=== PATIENT | male | born 1935 | race African-American/Black ===

== ENCOUNTER 2019-10-05 12:25 | Inpatient (IN) ==
[2019-10-05] MEDS ORDERED: DIPH/TET/ACEL PERT BOOSTER VACCINE 0.5 ML VIAL IM ONE (13:23)
[2019-10-05 14:11] LABS: Basophils % 0.1 % (0.0-0.8); Hematocrit 42.5 VOL% (42.0-52.0); Hemoglobin 14.3 GM/DL (14.0-18.0); Immature Granulocytes % 0.4 %; Immature Granulocytes Absolute 0.04 #; Lymphocytes # 1.1 10*3/uL (1.4-4.0); Lymphocytes % 10.2 % (21.2-54.2); Mean Corpuscular HGB Conc 33.6 GM/DL (32-36); Mean Corpuscular Volume 91.4 FL (87-102); Mean Platelet Volume 10.5 FL (9.6-12.0); Monocytes % 9.1 % (1.7-12.7); Neutrophils % 80.2 % (38.7-73.9); Platelet Count 199 T/CUMM (130-400); Red Blood Count 4.65 MC/CUMM (3.8-5.5)
[2019-10-05 14:42] LABS: Albumin 3.4 G/DL (3.4-5.0); Bilirubin,Total 2.3 MG/DL (0.2-1.0); Calcium 9.2 MG/DL (8.5-10.1); Osmolality,Calculated 284.8 MOS/KG (273-304); Partial Thromboplastin Time 31.5 SECS (23.9-33.8); Total Protein 7.8 G/DL (6.4-8.3)
[2019-10-05 15:05] LABS: Apearance,Urine Slightly Hazy (Clear); Bacteria,Urine Many /HPF (Few); Bilirubin,Urine Negative (Negative); Blood, Urine Large mg/dL (Negative); Glucose,Urine (UA) Negative (Negative); Ketones,Urine 5 mg/dL (Negative); Mucus,Urine Occasional /LPF (Occasional); Nitrite,Urine Negative (Negative); Protein,Urine 30 MG/DL; RBC,Urine 66 /HPF (0-4); Urine Color Yellow (Yellow); Urine Specific Gravity 1.014 (1.001-1.035); WBC,Urine 65 /HPF (0-6)
[2019-10-05 15:11] LABS: Barbiturates Screen,Urine Negative (Negative); Benzodiazepines Screen,Urine Negative (Negative); Cannabinoid Screen,Urine Negative (Negative); Opiate Screen,Urine Negative (Negative); Phencyclidine Screen,Urine Negative (Negative)
[2019-10-05] MEDS ORDERED: ASPIRIN CHEW 81 MG TABLET PO STA (15:27)
[2019-10-05] MEDS ORDERED: HEPARIN 1,000 UNIT/1 ML VIAL IV STA (15:28)
[2019-10-05] MEDS ORDERED: cefTRIAXone 1,000 MG in SODIUM CHLORIDE 0.9% 100 ML IV STA (15:30)
[2019-10-05] MEDS ORDERED: ACETAMINOPHEN 325 MG TABLET PO PRN (16:10)
[2019-10-05] MEDS ORDERED: ONDANSETRON 4 MG/2 ML VIAL IV PRN (16:10)
[2019-10-05] MEDS ORDERED: DEXTROSE 50% 25 GM/50 ML VIAL IV PRN (16:10)
[2019-10-05] MEDS ORDERED: GLUCAGON 1 MG VIAL IM PRN (16:10)
[2019-10-05] MEDS ORDERED: hydrALAZINE 20 MG/1 ML VIAL IV PRN (16:10)
[2019-10-05] MEDS ORDERED: LACTULOSE 20 GM/30 ML UDCUP PO PRN (16:10)
[2019-10-05] MEDS ORDERED: DOCUSATE SODIUM 100 MG CAPSULE PO PRN (16:10)
[2019-10-05] MEDS: SODIUM CHLORIDE 0.9% 1,000 ML IV SCH (17:45)
[2019-10-05] MEDS ORDERED: SIMVASTATIN 10 MG TABLET PO SCH (21:00)
[2019-10-05] MEDS: HEPARIN 5,000 UNIT/1 ML VIAL SUBCUT SCH (21:12)
[2019-10-06] MEDS: SODIUM CHLORIDE 0.9% 1,000 ML IV SCH ×3 (01:17→21:38)
[2019-10-06 06:23] LABS: Basophils % 0.2 % (0.0-0.8); Eosinophils % 0.1 % (0.00-10.9); Hematocrit 37.4 VOL% (42.0-52.0); Hemoglobin 12.4 GM/DL (14.0-18.0); Immature Granulocytes % 0.7 %; Immature Granulocytes Absolute 0.09 #; Lymphocytes # 1.8 10*3/uL (1.4-4.0); Mean Corpuscular HGB Conc 33.2 GM/DL (32-36); Mean Platelet Volume 10.8 FL (9.6-12.0); Monocytes % 10.2 % (1.7-12.7); Neutrophils % 74.8 % (38.7-73.9); Platelet Count 179 T/CUMM (130-400); Red Blood Count 4.11 MC/CUMM (3.8-5.5); Red Cell Distribution Width 14.4 % (9.3-17.3); White Blood Count 12.6 T/CUMM (4-12)
[2019-10-06] MEDS: HEPARIN 5,000 UNIT/1 ML VIAL SUBCUT SCH ×3 (06:46→21:46)
[2019-10-06 06:49] LABS: Albumin 2.5 G/DL (3.4-5.0); Bilirubin,Total 2.4 MG/DL (0.2-1.0); Calcium 8.3 MG/DL (8.5-10.1); Osmolality,Calculated 286.5 MOS/KG (273-304); Risk Ratio 2.27; Thyroid Stimulating Hormone 0.934 uIU/ml (0.358-3.74); VLDL CHOLESTEROL 24.2 MG/DL
[2019-10-06] MEDS: PANTOPRAZOLE 40 MG TABLET PO SCH (08:41)
[2019-10-06] MEDS: cefTRIAXone 1,000 MG in SYRINGE 1 EACH IV SCH (08:41)
[2019-10-06 08:58] LABS: CKMB % 0.3 %
[2019-10-06 09:01] LABS: Troponin I 1.55 NG/ML (0.00-0.045)
[2019-10-06 10:06] LABS: CKMB % 0.3 %
[2019-10-06 10:07] LABS: Troponin I 1.4 NG/ML (0.00-0.045)
[2019-10-06 12:03] LABS: CKMB % 0.3 %
[2019-10-06 12:04] LABS: Troponin I 1.29 NG/ML (0.00-0.045)
[2019-10-06] MEDS: POTASSIUM CHLORIDE 20 MEQ TABLET PO PRN ×4 (16:12→21:46)
[2019-10-07 05:21] LABS: Basophils % 0.2 % (0.0-0.8); Eosinophils # 0.1 10*3/uL (0.0-0.87); Eosinophils % 1.4 % (0.00-10.9); Hemoglobin 12.1 GM/DL (14.0-18.0); Immature Granulocytes % 0.5 %; Immature Granulocytes Absolute 0.03 #; Lymphocytes # 1.3 10*3/uL (1.4-4.0); Lymphocytes % 20.9 % (21.2-54.2); Mean Corpuscular HGB Conc 32.7 GM/DL (32-36); Mean Corpuscular Volume 93.7 FL (87-102); Mean Platelet Volume 10.5 FL (9.6-12.0); Monocytes % 11.6 % (1.7-12.7); Neutrophils % 65.4 % (38.7-73.9); Platelet Count 165 T/CUMM (130-400); Red Blood Count 3.95 MC/CUMM (3.8-5.5); Red Cell Distribution Width 14.5 % (9.3-17.3); White Blood Count 6.4 T/CUMM (4-12)
[2019-10-07] MEDS: HEPARIN 5,000 UNIT/1 ML VIAL SUBCUT SCH ×3 (05:41→21:01)
[2019-10-07 06:03] LABS: Albumin 2.4 G/DL (3.4-5.0); Calcium 8.2 MG/DL (8.5-10.1); Osmolality,Calculated 286.3 MOS/KG (273-304); Total Protein 6.6 G/DL (6.4-8.3)
[2019-10-07] MEDS: SODIUM CHLORIDE 0.9% 1,000 ML IV SCH ×3 (06:14→16:14)
[2019-10-07] MEDS: PANTOPRAZOLE 40 MG TABLET PO SCH (08:28)
[2019-10-07] MEDS: POTASSIUM CHLORIDE 20 MEQ TABLET PO PRN ×3 (08:28→14:50)
[2019-10-07] MEDS: cefTRIAXone 1,000 MG in SYRINGE 1 EACH IV SCH (08:28)
[2019-10-07 08:34] LABS: Troponin I 0.805 NG/ML (0.00-0.045)
[2019-10-07 08:40] LABS: CKMB % 0.3 %
[2019-10-08] MEDS: SODIUM CHLORIDE 0.9% 1,000 ML IV SCH ×3 (02:14→21:10)
[2019-10-08 05:33] LABS: Basophils % 0.3 % (0.0-0.8); Eosinophils # 0.1 10*3/uL (0.0-0.87); Eosinophils % 1.5 % (0.00-10.9); Hemoglobin 11.3 GM/DL (14.0-18.0); Immature Granulocytes % 1.4 %; Lymphocytes # 1.8 10*3/uL (1.4-4.0); Lymphocytes % 24.7 % (21.2-54.2); Mean Corpuscular HGB Conc 31.4 GM/DL (32-36); Monocytes % 12.2 % (1.7-12.7); Neutrophils % 59.9 % (38.7-73.9); Platelet Count 173 T/CUMM (130-400); Red Blood Count 3.79 MC/CUMM (3.8-5.5); Red Cell Distribution Width 14.6 % (9.3-17.3); White Blood Count 7.2 T/CUMM (4-12)
[2019-10-08 05:57] LABS: Calcium 8.1 MG/DL (8.5-10.1); Osmolality,Calculated 286.1 MOS/KG (273-304)
[2019-10-08] MEDS: HEPARIN 5,000 UNIT/1 ML VIAL SUBCUT SCH ×3 (05:57→21:09)
[2019-10-08 06:14] LABS: CKMB % 0.3 %
[2019-10-08 06:15] LABS: Troponin I 0.521 NG/ML (0.00-0.045)
[2019-10-08] MEDS ORDERED: FUROSEMIDE 20 MG/2 ML VIAL IV ONE (08:12)
[2019-10-08] MEDS: MULTIVITAMIN (BEROCCA) TABLET PO SCH (09:10)
[2019-10-08] MEDS: PANTOPRAZOLE 40 MG TABLET PO SCH (09:11)
[2019-10-08] MEDS: CEFUROXIME 500 MG TABLET PO SCH ×2 (09:11→21:09)
[2019-10-08] MEDS: LACTOBACILLUS RHAMNOSUS GG CAPSULE PO SCH ×2 (09:11→21:09)
[2019-10-08] MEDS: ASCORBIC ACID 500 MG TABLET PO SCH ×2 (09:11→21:09)
[2019-10-08] MEDS: POTASSIUM CHLORIDE 20 MEQ TABLET PO PRN (09:11)
[2019-10-09 05:03] LABS: Troponin I 0.223 NG/ML (0.00-0.045)
[2019-10-09] MEDS: HEPARIN 5,000 UNIT/1 ML VIAL SUBCUT SCH ×2 (06:17→14:51)
[2019-10-09] MEDS ORDERED: MAGNESIUM HYDROXIDE SUSP 30 ML UDCUP PO ONE (07:39)
[2019-10-09] MEDS: CEFUROXIME 500 MG TABLET PO SCH (08:10)
[2019-10-09] MEDS: ASCORBIC ACID 500 MG TABLET PO SCH (08:10)
[2019-10-09] MEDS: MULTIVITAMIN (BEROCCA) TABLET PO SCH (08:10)
[2019-10-09] MEDS: PANTOPRAZOLE 40 MG TABLET PO SCH (08:11)
[2019-10-09] MEDS: LACTOBACILLUS RHAMNOSUS GG CAPSULE PO SCH (08:11)
[2019-10-09 11:30] VITALS: BP 118/85
[2019-10-09] MEDS: SODIUM CHLORIDE 0.9% 1,000 ML IV SCH (14:01)
== END 2019-10-09 14:50 | disposition swing bed (61) | DRG 913 ==
LOC: N.EDINP 12:25 → N.ED 12:25 → N.TELEN 16:39 → SUATTDRO 10-06 15:01
PROVIDERS: ADMIT Internal Medicine; ATTEND Internal Medicine

== ENCOUNTER 2022-03-08 11:57 | Inpatient (IN) ==
[2022-03-08 14:23] LABS: Basophils % 0.2 % (0.0-0.8); Eosinophils # 0.1 10*3/uL (0.0-0.87); Eosinophils % 1.2 % (0.00-10.9); Hemoglobin 11.2 GM/DL (14.0-18.0); Immature Granulocytes % 0.3 %; Immature Granulocytes Absolute 0.02 #; Lymphocytes # 1.4 10*3/uL (1.4-4.0); Mean Corpuscular HGB Conc 31.1 GM/DL (32-36); Mean Corpuscular Volume 102.9 FL (87-102); Mean Platelet Volume 10.6 FL (9.6-12.0); Monocytes # 0.5 10*3/uL (0.11-0.8); Neutrophils % 65.3 % (38.7-73.9); Platelet Count 171 T/CUMM (130-400); Red Cell Distribution Width 14.2 % (9.3-17.3); White Blood Count 5.7 T/CUMM (4-12)
[2022-03-08 14:33] LABS: PT Patient Result 10.7 SECS (10.1-12.1); Partial Thromboplastin Time 25.5 SECS (23.7-32.9)
[2022-03-08 14:41] LABS: Albumin 4.1 G/DL (3.4-5.0); Bilirubin,Total 0.6 MG/DL (0.20-1.00); Calcium 9.6 MG/DL (8.5-10.1); Osmolality,Calculated 297.4 MOS/KG (273-304); Potassium 4.6 MMOL/L (3.5-5.1)
[2022-03-08] MEDS ORDERED: DOCUSATE SODIUM 100 MG CAPSULE PO PRN (15:15)
[2022-03-08] MEDS ORDERED: ONDANSETRON 4 MG/2 ML VIAL IV PRN (15:15)
[2022-03-08 16:03] LABS: Bilirubin,Urine Negative (Negative); Blood, Urine Trace mg/dL (Negative); Glucose,Urine (UA) Negative (Negative); Ketones,Urine Negative (Negative); Nitrite,Urine Negative (Negative); Protein,Urine 30 mg/dL (Negative); Urine Appearance Clear (Clear); Urine Color Yellow (Yellow); Urine Urobilinogen 0.2 eU/dL (<2.0); Urine pH 7.5 (4.5-8.0)
[2022-03-08 16:04] LABS: Hyaline Casts,Urine 3 /LPF (0-3); RBC,Urine 7 /HPF (0-4)
[2022-03-08] MEDS: ACETAMINOPHEN 325 MG TABLET PO PRN (17:23)
[2022-03-08] MEDS: SODIUM CHLORIDE 0.9% 1,000 ML IV SCH (18:16)
[2022-03-08] MEDS: HEPARIN 5,000 UNIT/1 ML VIAL SUBCUT SCH (21:47)
[2022-03-09 06:09] LABS: Basophils % 0.2 % (0.0-0.8); Eosinophils # 0.2 10*3/uL (0.0-0.87); Eosinophils % 3.2 % (0.00-10.9); Hematocrit 34.5 VOL% (42.0-52.0); Hemoglobin 10.6 GM/DL (14.0-18.0); Immature Granulocytes % 0.4 %; Immature Granulocytes Absolute 0.02 #; Lymphocytes # 1.5 10*3/uL (1.4-4.0); Lymphocytes % 29.5 % (21.2-54.2); Mean Corpuscular HGB Conc 30.7 GM/DL (32-36); Mean Corpuscular Volume 102.4 FL (87-102); Mean Platelet Volume 11.2 FL (9.6-12.0); Monocytes # 0.3 10*3/uL (0.11-0.8); Monocytes % 6.2 % (1.7-12.7); Neutrophils % 60.5 % (38.7-73.9); Platelet Count 145 T/CUMM (130-400); Red Blood Count 3.37 MC/CUMM (3.8-5.5); Red Cell Distribution Width 14.1 % (9.3-17.3)
[2022-03-09 06:15] LABS: Albumin 2.9 G/DL (3.4-5.0); Bilirubin,Total 0.7 MG/DL (0.20-1.00); Calcium 8.8 MG/DL (8.5-10.1); Osmolality,Calculated 293.6 MOS/KG (273-304); Potassium 4.7 MMOL/L (3.5-5.1); Total Protein 6.7 G/DL (6.4-8.2)
[2022-03-09 06:23] LABS: Risk Ratio 2.72; VLDL Cholesterol 25.6 MG/DL
[2022-03-09] MEDS: SODIUM CHLORIDE 0.9% 1,000 ML IV SCH ×3 (07:50→16:04)
[2022-03-09] MEDS: HEPARIN 5,000 UNIT/1 ML VIAL SUBCUT SCH ×2 (08:42→21:02)
[2022-03-09] MEDS: ASPIRIN EC 81 MG TABLET PO SCH (08:42)
[2022-03-09] MEDS: PANTOPRAZOLE 40 MG TABLET PO SCH (08:42)
[2022-03-09] MEDS ORDERED: TUBERCULIN SKIN TEST 0.1 ML SYRINGE INTRADERM ONE (09:30)
[2022-03-09] MEDS: MENTHOL/ZINC OXIDE OINT 71 GM JAR TOP SCH (21:02)
[2022-03-10] MEDS: SODIUM CHLORIDE 0.9% 1,000 ML IV SCH ×3 (01:57→22:04)
[2022-03-10] MEDS: ASPIRIN EC 81 MG TABLET PO SCH (08:42)
[2022-03-10] MEDS: PANTOPRAZOLE 40 MG TABLET PO SCH (08:42)
[2022-03-10] MEDS: ATORVASTATIN 20 MG TABLET PO SCH (08:42)
[2022-03-10] MEDS: MENTHOL/ZINC OXIDE OINT 71 GM JAR TOP SCH ×2 (08:43→20:54)
[2022-03-10] MEDS: HEPARIN 5,000 UNIT/1 ML VIAL SUBCUT SCH ×2 (08:43→20:54)
[2022-03-11 06:01] LABS: Basophils % 0.3 % (0.0-0.8); Eosinophils # 0.2 10*3/uL (0.0-0.87); Eosinophils % 2.5 % (0.00-10.9); Hematocrit 29.4 VOL% (42.0-52.0); Immature Granulocytes % 0.4 %; Immature Granulocytes Absolute 0.03 #; Lymphocytes # 1.8 10*3/uL (1.4-4.0); Lymphocytes % 24.2 % (21.2-54.2); Mean Corpuscular HGB Conc 30.6 GM/DL (32-36); Mean Corpuscular Volume 102.4 FL (87-102); Mean Platelet Volume 11.9 FL (9.6-12.0); Monocytes # 0.7 10*3/uL (0.11-0.8); Monocytes % 9.8 % (1.7-12.7); Neutrophils % 62.8 % (38.7-73.9); Platelet Count 132 T/CUMM (130-400); Red Blood Count 2.87 MC/CUMM (3.8-5.5); Red Cell Distribution Width 14.5 % (9.3-17.3); White Blood Count 7.3 T/CUMM (4-12)
[2022-03-11 06:04] LABS: Calcium 7.7 MG/DL (8.5-10.1); Osmolality,Calculated 293.6 MOS/KG (273-304); Potassium 3.7 MMOL/L (3.5-5.1)
[2022-03-11 07:15] LABS: Hypochromia Slight; Platelet Estimate Normal
[2022-03-11] MEDS: ASPIRIN EC 81 MG TABLET PO SCH (08:38)
[2022-03-11] MEDS: PANTOPRAZOLE 40 MG TABLET PO SCH (08:38)
[2022-03-11] MEDS: ATORVASTATIN 20 MG TABLET PO SCH (08:38)
[2022-03-11] MEDS: MENTHOL/ZINC OXIDE OINT 71 GM JAR TOP SCH ×2 (08:38→22:17)
[2022-03-11] MEDS: HEPARIN 5,000 UNIT/1 ML VIAL SUBCUT SCH ×2 (08:39→22:18)
[2022-03-11] MEDS: SODIUM CHLORIDE 0.9% 1,000 ML IV SCH ×2 (12:57→22:30)
[2022-03-12 06:10] LABS: Potassium 3.9 MMOL/L (3.5-5.1)
[2022-03-12] MEDS: PANTOPRAZOLE 40 MG TABLET PO SCH (08:44)
[2022-03-12] MEDS: MENTHOL/ZINC OXIDE OINT 71 GM JAR TOP SCH ×2 (08:44→23:06)
[2022-03-12] MEDS: ASPIRIN EC 81 MG TABLET PO SCH (08:44)
[2022-03-12] MEDS: ATORVASTATIN 20 MG TABLET PO SCH (08:44)
[2022-03-12] MEDS: HEPARIN 5,000 UNIT/1 ML VIAL SUBCUT SCH ×2 (08:45→23:06)
[2022-03-12] MEDS: SODIUM CHLORIDE 0.9% 1,000 ML IV SCH ×2 (10:00→15:30)
[2022-03-13] MEDS: SODIUM CHLORIDE 0.9% 1,000 ML IV SCH ×3 (00:50→22:50)
[2022-03-13] MEDS: ATORVASTATIN 20 MG TABLET PO SCH (08:46)
[2022-03-13] MEDS: ASPIRIN EC 81 MG TABLET PO SCH (08:46)
[2022-03-13] MEDS: HEPARIN 5,000 UNIT/1 ML VIAL SUBCUT SCH ×2 (08:47→21:24)
[2022-03-13] MEDS: MENTHOL/ZINC OXIDE OINT 71 GM JAR TOP SCH ×2 (08:47→21:24)
[2022-03-13] MEDS: PANTOPRAZOLE 40 MG TABLET PO SCH (08:50)
[2022-03-13] MEDS: ACETAMINOPHEN 325 MG TABLET PO PRN (21:24)
[2022-03-14 05:34] LABS: Basophils % 0.2 % (0.0-0.8); Eosinophils % 0.5 % (0.00-10.9); Hematocrit 30.8 VOL% (42.0-52.0); Hemoglobin 9.8 GM/DL (14.0-18.0); Immature Granulocytes % 0.4 %; Immature Granulocytes Absolute 0.03 #; Lymphocytes # 1.1 10*3/uL (1.4-4.0); Lymphocytes % 13.7 % (21.2-54.2); Mean Corpuscular HGB Conc 31.8 GM/DL (32-36); Mean Corpuscular Volume 99.4 FL (87-102); Mean Platelet Volume 11.1 FL (9.6-12.0); Monocytes # 0.9 10*3/uL (0.11-0.8); Monocytes % 10.7 % (1.7-12.7); Neutrophils % 74.5 % (38.7-73.9); Platelet Count 144 T/CUMM (130-400); White Blood Count 8.3 T/CUMM (4-12)
[2022-03-14 06:05] LABS: Albumin 2.5 G/DL (3.4-5.0); Bilirubin,Total 0.8 MG/DL (0.20-1.00); Calcium 8.2 MG/DL (8.5-10.1); Total Protein 6.5 G/DL (6.4-8.2)
[2022-03-14] MEDS: ATORVASTATIN 20 MG TABLET PO SCH (08:35)
[2022-03-14] MEDS: SODIUM CHLORIDE 0.9% 1,000 ML IV SCH (08:35)
[2022-03-14] MEDS: ASPIRIN EC 81 MG TABLET PO SCH (08:35)
[2022-03-14] MEDS: HEPARIN 5,000 UNIT/1 ML VIAL SUBCUT SCH ×2 (08:35→21:20)
[2022-03-14] MEDS: PANTOPRAZOLE 40 MG TABLET PO SCH (08:35)
[2022-03-14] MEDS: MENTHOL/ZINC OXIDE OINT 71 GM JAR TOP SCH ×2 (08:35→21:20)
[2022-03-14] MEDS: ACETAMINOPHEN 325 MG TABLET PO PRN (11:40)
[2022-03-15] MEDS: ASPIRIN EC 81 MG TABLET PO SCH (08:57)
[2022-03-15] MEDS: MENTHOL/ZINC OXIDE OINT 71 GM JAR TOP SCH (08:58)
[2022-03-15] MEDS: HEPARIN 5,000 UNIT/1 ML VIAL SUBCUT SCH (08:58)
[2022-03-15] MEDS: ATORVASTATIN 20 MG TABLET PO SCH (08:58)
[2022-03-15] MEDS: PANTOPRAZOLE 40 MG TABLET PO SCH (08:59)
[2022-03-15] MEDS ORDERED: TUBERCULIN SKIN TEST 0.1 ML SYRINGE INTRADERM ONE (10:00)
[2022-03-15 11:29] VITALS: BP 142/72
== END 2022-03-15 16:05 | disposition swing bed (61) | DRG 641 ==
LOC: N.ED 11:57 → N.EDINP 15:14 → SUATTDRO 15:14 → N.3E 17:56
PROVIDERS: ADMIT Emergency Medicine; ATTEND Internal Medicine